=== PATIENT | female | born 1970 | race Caucasian/White ===

== ENCOUNTER 2017-10-18 12:46 | Emergency (ER) | payer BC ==
[~2017-10-18] VITALS: Ht 175.3 cm; Wt 85.0 kg
[~2017-10-18 12:46] MED LIST: MOTRIN800 MG PO
[2017-10-18] MEDS ORDERED: HYDROCO/APAP1 TA9 PO (13:17)
[2017-10-18] MEDS ORDERED: ACCUPRIL5 MG PO (13:18)
[2017-10-18 15:27] VITALS: BP 106/74
== END 2017-10-18 15:27 | disposition home or self-care (01) | DRG 556 ==
LOC: ED 12:46
DX: M79.662 Pain in left lower leg (principal); F17.210 Nicotine dependence, cigarettes, uncomplicated; M79.89 Other specified soft tissue disorders; Z98.890 Other specified postprocedural states

== ENCOUNTER 2018-03-08 14:47 | Emergency (ER) | payer OTHER, BC ==
[~2018-03-08] VITALS: Ht 175.3 cm; Wt 85.9 kg
[~2018-03-08 14:47] MED LIST changes: +ACCUPRIL5 MG PO; +HYDROCO/APAP1 TA9 PO
[2018-03-08] MEDS ORDERED: MOTRIN400 MG PO (17:21)
[2018-03-08 17:37] VITALS: BP 124/73
== END 2018-03-08 17:36 | disposition home or self-care (01) | DRG 552 ==
LOC: ED 14:47
DX: S16.1XXA Strain of muscle, fascia and tendon at neck level, initial encounter (principal); S46.911A Strain of unspecified muscle, fascia and tendon at shoulder and upper arm level, right arm, initial encounter; F17.210 Nicotine dependence, cigarettes, uncomplicated; W20.8XXA Other cause of strike by thrown, projected or falling object, initial encounter; Y93.89 Activity, other specified; Y92.89 Other specified places as the place of occurrence of the external cause; Y99.0 Civilian activity done for income or pay

== ENCOUNTER 2018-06-13 10:02 | Emergency (ER) | payer BC ==
[~2018-06-13] VITALS: Ht 175.3 cm; Wt 89.0 kg
[~2018-06-13 10:02] MED LIST changes: +CEPHALEXIN500 M1 PO; +DEBROX6.5 % AD; +DENIES CURRENT MEDS; +FLONASE NASAL50 MCG; +MOTRIN400 MG PO; +NAPROSYN500 MG PO; +ROBITUSSIN AC10 ML OR; +TRAMADOL HYDROC50 MG PO; +ZITHROMAX250 MG PO
[2018-06-13] MEDS ORDERED: ULTRAM50 M1 PO (12:35)
[2018-06-13] MEDS ORDERED: AMOXICILLIN500 MG PO (12:35)
[2018-06-13 12:40] VITALS: BP 120/66
== END 2018-06-13 12:40 | disposition home or self-care (01) | DRG 153 ==
LOC: ED 10:02
DX: J02.9 Acute pharyngitis, unspecified (principal); I88.9 Nonspecific lymphadenitis, unspecified; F17.210 Nicotine dependence, cigarettes, uncomplicated; M50.80 Other cervical disc disorders, unspecified cervical region

== ENCOUNTER 2018-07-22 14:06 | Emergency (ER) | payer OTHER, BC ==
[~2018-07-22] VITALS: Ht 175.3 cm; Wt 80.0 kg
[~2018-07-22 14:06] MED LIST changes: +AMOXICILLIN500 MG PO; +ULTRAM50 M1 PO
[2018-07-22] MEDS ORDERED: CYCLOBENZAPRINE5 MG PO (14:40)
[2018-07-22 15:30] VITALS: BP 125/70
== END 2018-07-22 15:30 | disposition home or self-care (01) | DRG 556 ==
LOC: ED 14:06
DX: M62.838 Other muscle spasm (principal); F17.210 Nicotine dependence, cigarettes, uncomplicated; X50.0XXA Overexertion from strenuous movement or load, initial encounter; Y93.89 Activity, other specified; Y92.89 Other specified places as the place of occurrence of the external cause; Y99.0 Civilian activity done for income or pay

== ENCOUNTER 2018-11-07 10:31 | Emergency (ER) | payer BC ==
[~2018-11-07] VITALS: Ht 175.3 cm; Wt 87.3 kg
[~2018-11-07 10:31] MED LIST changes: +CYCLOBENZAPRINE5 MG PO
[2018-11-07] MEDS ORDERED: PREDNISONE50 MG PO ×2 (10:50→10:56)
[2018-11-07] MEDS ORDERED: DOXYCYCL HYC100 M4 PO ×2 (10:50→10:56)
[2018-11-07] MEDS ORDERED: PROAIR HFA108 MCG/AC PO ×2 (10:50→10:56)
[2018-11-07 11:30] VITALS: BP 127/77
== END 2018-11-07 11:30 | disposition home or self-care (01) | DRG 203 ==
LOC: ED 10:31
DX: J40 Bronchitis, not specified as acute or chronic (principal); R05 Cough; F17.200 Nicotine dependence, unspecified, uncomplicated

== ENCOUNTER 2018-11-29 20:24 | Emergency (ER) | payer BC ==
[~2018-11-29] VITALS: Ht 175.3 cm; Wt 86.0 kg
[~2018-11-29 20:24] MED LIST changes: +DOXYCYCL HYC100 M4 PO; +PREDNISONE50 MG PO; +PROAIR HFA108 MCG/AC PO
[2018-11-29 22:00] VITALS: BP 115/68
== END 2018-11-29 22:03 | disposition home or self-care (01) | DRG 563 ==
LOC: ED 20:24
DX: S93.402A Sprain of unspecified ligament of left ankle, initial encounter (principal); S90.812A Abrasion, left foot, initial encounter; F17.200 Nicotine dependence, unspecified, uncomplicated; W20.8XXA Other cause of strike by thrown, projected or falling object, initial encounter; Y93.89 Activity, other specified; Y92.009 Unspecified place in unspecified non-institutional (private) residence as the place of occurrence of the external cause

== ENCOUNTER 2019-04-19 12:34 | Observation (INO) | payer BC ==
[~2019-04-19] VITALS: Ht 175.3 cm; Wt 84.1 kg
--- NOTE | 2019-04-19 12:36 | NUR ---
PT ARRIVED SKIN PWD VIA EMS STRETCHER IN NO ACUTE DISTRESS.VSS. STATES CP IS RESOLVED. STATES CP BEGAN AT WORK APPROX [id number] AND WENT INTO RT NECK AND ARM
[2019-04-19 12:59] LABS: GFR > 60 ML/MIN (>=60 (CALC)); GFR FOR AFR.AMER. > 60 ML/MIN (>=60 (CALC))
[2019-04-19 13:10] LABS: HEMATOCRIT 38.9 % (37.0-47.0); HEMOGLOBIN 12.6 g/dl (12.0-16.0); IMMATURE GRANULOCYTES 0.4 % (0.0-5.0); MEAN CELL VOLUME 92.2 fL CALC (80.0-100.0); MEAN CORPUSCULAR HGB 29.9 pG CALC (26.0-32.0); MEAN CORPUSCULAR HGB CONC 32.4 g/L CALC (32.0-36.0); NEUT# 4.2 thou/uL (2.00-7.15); RED BLOOD COUNT 4.22 mill/uL (4.20-5.60); RED CELL DISTRI WIDTH 12.9 % (11.5-15.5)
--- NOTE | 2019-04-19 13:36 | NUR ---
PT RESTING IN NO ACUTE DISTRESS. VSS. CONTINUES TO DENY CP OR SOB
[2019-04-19 13:47] LABS: ALBUMIN 4.3 g/dL (3.2-5.0); ALKALINE PHOSPHATASE 73 u/l (38-126); ANION GAP 12 (6-22 (CALC)); BILIRUBIN, TOTAL 0.4 mg/dL (0.0-1.4); BUN 12 mg/dL (7-17); BUN/CREATININE RATIO 17 (12-20 (CALC)); CARBON DIOXIDE 25 mmol/l (22-30); CHLORIDE 106 mmol/l (95-108); CREATININE 0.7 mg/dL (0.5-1.0); GFR > 60 ML/MIN (>=60 (CALC)); GFR FOR AFR.AMER. > 60 ML/MIN (>=60 (CALC)); LIPASE 67 u/l (23-300); POTASSIUM 4.3 mmol/l (3.5-5.1); SGOT/AST 24 u/l (14-36); SODIUM 139 mmol/l (137-146); TOTAL PROTEIN 7.1 g/dL (6.3-8.2)
--- NOTE | 2019-04-19 14:36 | NUR ---
PT IN NO DISTRESS, CONTINUES TO DENY SOB OR CP SINCE ADMIT TO ED. SKIN PWD, NO DISTRESS. VSS. SPOUSE AT BEDSIDE.
--- NOTE | 2019-04-19 14:45 | NUR ---
PT AWARE OF PENDING ADMIT AND AGREEABLE
--- NOTE | 2019-04-19 15:14 | NUR ---
ADMINISTERED PO PROTONIX AND SQ LOVENOX ORDERED. PT TOLERATED WELL. REMAINS PAIN FREE. AT BEDSIDE.
--- NOTE | 2019-04-19 15:55 | NUR ---
CALLED REPORT TO IAIN POSADA RN
--- NOTE | 2019-04-19 16:00 | NUR ---
TRANSPORTED TO IN VIA ON TELEMETRY IN STABLE CONDITION
[2019-04-19 16:10] VITALS: BP 115/77
--- NOTE | 2019-04-19 16:16 | NUR ---
PT HAD COME FROM ER VIA WHEELCHAIR BY DONNA. PT IS SITTING IN THE SIDE OF THE BED. ASSESSMENT DONE. PT IS A&O X3. PT DENIES CHEST PAIN. RESPS EVEN AND UNLABORED. TELE IN PLACE. 20 LAC THAT APPEAR HEALTHY. SAFETY PRECAUTIONS REINFORCED AND CALL LIGHT IN REACH.
[2019-04-19 19:05] VITALS: BP 110/65
--- NOTE | 2019-04-19 20:00 | NUR ---
PATIENT AWAKE ALERT AND ORIENTEDX3 RESTING IN BED. PATIENT WITH NO COMPLAINTS AT THIS TIME. DENIES ANY CHEST PAIN OR SOB. TELE MONITOR IN PLACE. PATIENT EMS IV SITE TO LEFT ACSALINE LOCK. APPEARS HEALTHY AT THIS TIME. ON CONTACT PRECAUTIONS FOR H/O MRSA. SERIAL TROPS NEG SO FAR. CALL LIGHT IN REACH. WILL CONT TO MONITOR.
[2019-04-19 23:45] VITALS: BP 102/65
--- NOTE | 2019-04-20 | NUR ---
PATIENT RESTING IN BED-TROP DRAWN ORDERED. TELE MONITOR IN PLACE, NO COMPLAINTS AT THIS TIME. CALL LIGHT IN REACH, WILL CONT TO MONITOR.
[2019-04-20 04:24] VITALS: BP 100/51
--- NOTE | 2019-04-20 04:26 | NUR ---
PATIENT APPEARS RESTING WITH EYES CLOSED. RESP ARE EVEN AND UNLABORED. TELE MONITOR IN PLACE. CALL LIGHT IN REACH. WILL CONT TO MONITOR.
[2019-04-20 05:49] LABS: HEMATOCRIT 38.4 % (37.0-47.0); HEMOGLOBIN 12.5 g/dl (12.0-16.0); IMMATURE GRANULOCYTES 0.3 % (0.0-5.0); MEAN CELL VOLUME 92.8 fL CALC (80.0-100.0); MEAN CORPUSCULAR HGB 30.2 pG CALC (26.0-32.0); MEAN CORPUSCULAR HGB CONC 32.6 g/L CALC (32.0-36.0); NEUT# 2.56 thou/uL (2.00-7.15); RED BLOOD COUNT 4.14 mill/uL (4.20-5.60); RED CELL DISTRI WIDTH 12.8 % (11.5-15.5)
[2019-04-20 06:02] LABS: ALBUMIN 3.8 g/dL (3.2-5.0); ALKALINE PHOSPHATASE 69 u/l (38-126); AMYLASE 35 u/l (30-110); ANION GAP 7 (6-22 (CALC)); BILIRUBIN, TOTAL 0.4 mg/dL (0.0-1.4); BUN 12 mg/dL (7-17); BUN/CREATININE RATIO 15 (12-20 (CALC)); CHLORIDE 105 mmol/l (95-108); CREATININE 0.8 mg/dL (0.5-1.0); GFR > 60 ML/MIN (>=60 (CALC)); GFR FOR AFR.AMER. > 60 ML/MIN (>=60 (CALC)); LIPASE 62 u/l (23-300); MAGNESIUM 2.1 mg/dL (1.6-2.3); SGOT/AST 20 u/l (14-36); SODIUM 139 mmol/l (137-146); TOTAL PROTEIN 6.4 g/dL (6.3-8.2)
[2019-04-20 06:18] LABS: CARBON DIOXIDE 31 mmol/l (22-30)
[2019-04-20 07:36] VITALS: BP 114/58
--- NOTE | 2019-04-20 07:49 | NUR ---
ASSESSMENT DONE. PT IS A&O X3. PT DENIES PAIN AT THIS TIME. RESPS EVEN AND UNLABORED. TELE IN PLACE. PT DENIES ANY NEEDS AT THIS TIME. CALL LIGHT IN REACH.
--- NOTE | 2019-04-20 07:49 | NUR ---
PT ASSESSMENT COMPLETE. PT RESTING IN BED. PT STATED NO PAIN AT THIS TIME. RESP UNLABORED. PT IS A&O X3. TELE IN PLACE. MEDICATION PASSED. PT STATES NO NEEDS AT THIS TIME. CALL LIGHT WITHIN REACH.
--- NOTE | 2019-04-20 11:05 | NUR ---
DR. BROUSSARD AT BEDSIDE TO ASSESS PT AND DISCUSS POC. PT IS TO BE D/C TODAY. PT REMOVED HER TELE. IN ROOM. CALL LIGHT IN REACH.
[2019-04-20 11:18] VITALS: BP 106/61
--- NOTE | 2019-04-20 12:12 | NUR ---
Discharge instructions given. Patient verbalizes understanding of same. Discharged in stable condition via Ambulatory to Home with spouse. All belongings sent with pt.
== END 2019-04-20 12:10 | disposition home or self-care (01) | DRG 313 ==
LOC: ED 12:34 → ED-I 14:35 → ED 14:49 → MS2 14:50
PROVIDERS: Family Medicine; ADMIT Internal Medicine Nephrology; ATTEND Internal Medicine Nephrology
DX: R07.89 Other chest pain (principal); M50.10 Cervical disc disorder with radiculopathy, unspecified cervical region; F17.200 Nicotine dependence, unspecified, uncomplicated
CPT/HCPCS: G0378; J1650; Q9967

== ENCOUNTER 2021-06-03 14:35 | Emergency (ER) | payer SELFPAY ==
[~2021-06-03] VITALS: Ht 175.3 cm; Wt 93.6 kg
[2021-06-03 16:34] VITALS: BP 121/66
== END 2021-06-03 16:39 | disposition home or self-care (01) | DRG 556 ==
LOC: ED 14:35
DX: M25.562 Pain in left knee (principal); F17.200 Nicotine dependence, unspecified, uncomplicated; W01.0XXA Fall on same level from slipping, tripping and stumbling without subsequent striking against object, initial encounter; Y92.008 Other place in unspecified non-institutional (private) residence as the place of occurrence of the external cause

== ENCOUNTER 2021-07-16 14:17 | Emergency (ER) | payer OTHER ==
[~2021-07-16] VITALS: Ht 175.3 cm; Wt 77.0 kg
[2021-07-16] MEDS ORDERED: ZOFRAN4 MG/TAB PO (16:23)
[2021-07-16 16:28] VITALS: BP 122/75
== END 2021-07-16 16:28 | disposition home or self-care (01) | DRG 561 ==
LOC: ED 14:17
DX: S42.301D Unspecified fracture of shaft of humerus, right arm, subsequent encounter for fracture with routine healing (principal); X58.XXXD Exposure to other specified factors, subsequent encounter; F17.200 Nicotine dependence, unspecified, uncomplicated

== ENCOUNTER 2022-03-14 18:21 | Emergency (ER) | payer OTHER ==
[~2022-03-14] VITALS: Ht 175.3 cm; Wt 108.0 kg
[~2022-03-14 18:21] MED LIST changes: +ZOFRAN4 MG/TAB PO
[2022-03-14 18:26] VITALS: BP 147/84
[2022-03-14 18:33] VITALS: BP 136/77
[2022-03-14 18:57] VITALS: BP 135/67
[2022-03-14 19:00] VITALS: BP 127/76
[2022-03-14 19:30] VITALS: BP 130/80
[2022-03-14] MEDS ORDERED: NAPROXEN500 MG PO (20:40)
[2022-03-14 20:44] VITALS: BP 130/80
== END 2022-03-14 20:44 | disposition home or self-care (01) | DRG 605 ==
LOC: ED 18:21
DX: S90.31XA Contusion of right foot, initial encounter (principal); R07.81 Pleurodynia; M25.562 Pain in left knee; F17.200 Nicotine dependence, unspecified, uncomplicated; W10.9XXA Fall (on) (from) unspecified stairs and steps, initial encounter

== ENCOUNTER 2023-08-04 20:14 | Emergency (ER) | payer SELFPAY ==
[~2023-08-04] VITALS: Ht 175.3 cm; Wt 97.0 kg
[~2023-08-04 20:14] MED LIST changes: +NAPROXEN500 MG PO
[2023-08-04 20:28] VITALS: BP 123/76
[2023-08-04] MEDS ORDERED: VOLTAREN75 MG PO (22:00)
[2023-08-04 22:17] VITALS: BP 123/76
== END 2023-08-04 22:17 | disposition home or self-care (01) | DRG 558 ==
LOC: ED 20:14
DX: M75.32 Calcific tendinitis of left shoulder (principal); F17.210 Nicotine dependence, cigarettes, uncomplicated

== ENCOUNTER 2024-06-03 13:44 | Emergency (ER) | payer OTHER ==
[~2024-06-03] VITALS: Ht 175.3 cm; Wt 87.0 kg
[2024-06-03] VITALS (18 sets, daily range): BP systolic 86–116; BP diastolic 49–71
[~2024-06-03 13:44] MED LIST changes: +VOLTAREN75 MG PO
[2024-06-03] MEDS ORDERED: ASPIRIN 81 MG/TAB PO ONE (14:05)
[2024-06-03] MEDS ORDERED: ORPHENADRINE CITRATE 30 MG/ML AMP IM ONE (14:10)
[2024-06-03] MEDS ORDERED: traMADol HCL 50 MG/TAB PO ONE (14:10)
[2024-06-03 14:25] LABS: BASO% 0.2 % (0-3); EOS% 2.4 % (0-8); HEMATOCRIT 40.3 % (37.0-47.0); HEMOGLOBIN 13.3 g/dl (12.0-16.0); IMMATURE GRANULOCYTES 0.1 % (0.0-5.0); LYMPH% 26.6 % (15-41); MEAN CELL VOLUME 93.3 fL CALC (80.0-100.0); MEAN CORPUSCULAR HGB 30.8 pG CALC (26.0-32.0); MONO% 5.8 % (2-13); NEUT# 5.84 thou/uL (2.00-7.15); NEUT% 64.9 % (42-76); RED BLOOD COUNT 4.32 mill/uL (4.20-5.60); RED CELL DISTRI WIDTH 12.9 % (11.5-15.5)
[2024-06-03 14:31] LABS: D-DIMER 0.35 mg/L (0.19-0.60)
[2024-06-03 14:32] LABS: ALBUMIN 4.3 g/dL (3.2-5.0); ALKALINE PHOSPHATASE 84 u/l (38-126); BILIRUBIN, TOTAL 0.5 mg/dL (0.02-1.3); BUN 11 mg/dL (7-17); BUN/CREATININE RATIO 13 (12-20 (CALC)); CHLORIDE 109 mmol/l (95-108); CREATININE 0.8 mg/dL (0.5-1.0); ESTIMATED GFR 89 ML/MIN (>=90 (CALC)); LIPASE 52 u/l (23-300); SGOT/AST 27 u/l (14-36); SODIUM 137 mmol/l (137-146)
[2024-06-03 14:37] LABS: ACT PARTIAL THROMBO TIME 27.1 SECONDS (20.0-32.5); INTERNATIONAL NORMALIZED RATIO 1.1 RATIO (0.7-1.3)
[2024-06-03 14:38] LABS: ANION GAP 11 (6-22 (CALC)); CARBON DIOXIDE 21 mmol/l (22-30); PROTHROMBIN TIME 10.3 SECONDS (9.0-12.5); TOTAL PROTEIN 7.7 g/dL (6.3-8.2)
[2024-06-03 15:03] LABS: TSH, 3RD GENERATION 0.96 uIU/mL (0.47 - 4.68)
[2024-06-03] MEDS ORDERED: ORPHENADRINE100 MG PO (16:37)
[2024-06-03] MEDS ORDERED: MOTRIN800 MG PO (16:37)
== END 2024-06-03 17:09 | disposition home or self-care (01) | DRG 313 ==
LOC: ED 13:44
PROVIDERS: Emergency Medicine
DX: R07.89 Other chest pain (principal); F17.200 Nicotine dependence, unspecified, uncomplicated

== ENCOUNTER 2024-06-21 12:09 | Emergency (ER) | payer OTHER ==
[2024-06-21] VITALS (7 sets, daily range): BP systolic 117–150; BP diastolic 75–81
[~2024-06-21] VITALS: Ht 175.3 cm; Wt 88.0 kg
[~2024-06-21 12:09] MED LIST changes: +ORPHENADRINE100 MG PO
[2024-06-21] MEDS ORDERED: MEDDOSEPAK PO (13:40)
[2024-06-21] MEDS ORDERED: ZPAK PO (13:40)
== END 2024-06-21 13:54 | disposition home or self-care (01) | DRG 153 ==
LOC: ED 12:09
DX: J06.9 Acute upper respiratory infection, unspecified (principal); F17.200 Nicotine dependence, unspecified, uncomplicated; Z20.822 Contact with and (suspected) exposure to COVID-19

== ENCOUNTER 2024-06-30 15:33 | Emergency (ER) | payer OTHER ==
[~2024-06-30] VITALS: Ht 175.3 cm; Wt 88.9 kg
[2024-06-30] VITALS (8 sets, daily range): BP systolic 102–155; BP diastolic 59–87
[~2024-06-30 15:33] MED LIST changes: +MEDDOSEPAK PO; +ZPAK PO
[2024-06-30] MEDS ORDERED: predniSONE 20 MG/TAB PO ONE (15:40)
[2024-06-30] MEDS ORDERED: ALBUTEROL SULFATE 2.5 MG VIAL IN ONE ×2 (15:40→16:20)
[2024-06-30] MEDS ORDERED: PREDNISONE20 MG PO (17:07)
[2024-06-30] MEDS ORDERED: ALBUTEROL SUL0.083 % IN (17:07)
== END 2024-06-30 17:24 | disposition home or self-care (01) | DRG 203 ==
LOC: ED 15:33
DX: J45.909 Unspecified asthma, uncomplicated (principal); F17.200 Nicotine dependence, unspecified, uncomplicated

== ENCOUNTER 2024-12-24 23:07 | Emergency (ER) | payer OTHER ==
[~2024-12-24] VITALS: Ht 175.3 cm; Wt 79.0 kg
[~2024-12-24 23:07] MED LIST changes: +ALBUTEROL SUL0.083 % IN; +PREDNISONE20 MG PO
[2024-12-24 23:11] VITALS: BP 123/67
[2024-12-24 23:30] VITALS: BP 116/58
[2024-12-24] MEDS ORDERED: MORPHINE SULFATE 4 MG/ML VIAL IV ONE (23:30)
[2024-12-24] MEDS ORDERED: ONDANSETRON HCl 4 MG/2 ML SDV IV ONE (23:30)
[2024-12-24 23:53] LABS: URINE BILIRUBIN - DIPSTICK Negative (NEGATIVE); URINE BLOOD DIPSTICK Trace-intact (NEGATIVE); URINE GLUCOSE - DIPSTICK Negative (NEGATIVE); URINE KETONE Negative (NEGATIVE); URINE LEUK ESTERASE Negative (NEGATIVE); URINE NITRITE - DIPSTICK Negative (Negative); URINE PROTEIN - DIPSTICK 30 mg/dL (NEG-TRACE)
[2024-12-24 23:54] LABS: BASO% 0.2 % (0-3); EOS% 2.9 % (0-8); HEMATOCRIT 37.7 % (37.0-47.0); HEMOGLOBIN 12.1 g/dl (12.0-16.0); IMMATURE GRANULOCYTES 0.2 % (0.0-5.0); LYMPH% 31.9 % (15-41); MEAN CELL VOLUME 94.3 fL CALC (80.0-100.0); MEAN CORPUSCULAR HGB 30.3 pG CALC (26.0-32.0); MEAN CORPUSCULAR HGB CONC 32.1 g/dL CAL (32.0-36.0); MONO% 6.2 % (2-13); NEUT# 7.14 thou/uL (2.00-7.15); NEUT% 58.6 % (42-76)
[2024-12-24 23:54] LABS: URINE COLOR Yellow
[2024-12-25 00:04] LABS: BILIRUBIN, TOTAL 0.5 mg/dL (0.02-1.3); CREATININE 0.8 mg/dL (0.5-1.0); POTASSIUM 3.9 mmol/l (3.5-5.1); TOTAL PROTEIN 6.8 g/dL (6.3-8.2)
[2024-12-25 00:09] LABS: CPK 85 u/l (30-135)
[2024-12-25 00:14] LABS: URINE WBC 0-2 WBC/hpf (0-5)
[2024-12-25 00:15] LABS: URINE MUCUS MODERATE hpf (NONE-FEW); URINE SQUAMOUS EPITHELIAL CELL MODERATE EPI/hpf (0-FEW); URINE TRANSITIONAL EPI. CELLS FEW hpf
[2024-12-25 01:30] VITALS: BP 104/61
[2024-12-25 02:00] VITALS: BP 116/72
[2024-12-25 02:30] VITALS: BP 111/72
[2024-12-25] MEDS ORDERED: ZOFRAN4 MG/TAB PO (02:46)
[2024-12-25 03:00] VITALS: BP 114/68
[2024-12-25 03:04] VITALS: BP 114/68
== END 2024-12-25 03:04 | disposition home or self-care (01) | DRG 392 ==
LOC: ED 23:07
PROVIDERS: Family Medicine
DX: K29.70 Gastritis, unspecified, without bleeding (principal); F17.210 Nicotine dependence, cigarettes, uncomplicated
CPT/HCPCS: J2405; Q9967

== ENCOUNTER 2024-12-31 10:58 | Emergency (ER) | payer OTHER ==
[~2024-12-31] VITALS: Ht 175.3 cm; Wt 79.8 kg
[2024-12-31 11:30] LABS: BASO% 0.4 % (0-3); EOS% 6.6 % (0-8); HEMATOCRIT 39.7 % (37.0-47.0); HEMOGLOBIN 12.9 g/dl (12.0-16.0); IMMATURE GRANULOCYTES 0.1 % (0.0-5.0); LYMPH% 35.5 % (15-41); MEAN CELL VOLUME 94.3 fL CALC (80.0-100.0); MEAN CORPUSCULAR HGB 30.6 pG CALC (26.0-32.0); MEAN CORPUSCULAR HGB CONC 32.5 g/dL CAL (32.0-36.0); MONO% 7.1 % (2-13); NEUT# 3.41 thou/uL (2.00-7.15); NEUT% 50.3 % (42-76); RED BLOOD COUNT 4.21 mill/uL (4.20-5.60); RED CELL DISTRI WIDTH 13.2 % (11.5-15.5)
[2024-12-31 11:33] LABS: URINE BILIRUBIN - DIPSTICK Negative (NEGATIVE); URINE BLOOD DIPSTICK Negative (NEGATIVE); URINE COLOR Yellow; URINE GLUCOSE - DIPSTICK Negative (NEGATIVE); URINE KETONE Negative (NEGATIVE); URINE LEUK ESTERASE Negative (NEGATIVE); URINE NITRITE - DIPSTICK Negative (Negative); URINE PROTEIN - DIPSTICK Negative (NEG-TRACE); URINE SPECIFIC GRAVITY 1.015; URINE UROBILINOGEN - DIPSTICK 0.2 E.U./dL (0.2)
[2024-12-31 11:53] VITALS: BP 112/64
[2024-12-31] MEDS ORDERED: ALUM & MAG HYDROX-SIMETHICONE 30 ML PO ONE (11:55)
[2024-12-31] MEDS ORDERED: Pantoprazole Sodium 40 MG VIAL (Protonix) IV ONE (11:55)
[2024-12-31] MEDS ORDERED: LIDOCAINE VISCOUS 2% 15 ML UDC PO ONE (11:55)
[2024-12-31 11:59] LABS: ALBUMIN 4.3 g/dL (3.2-5.0); BILIRUBIN, TOTAL 0.6 mg/dL (0.02-1.3); CREATININE 0.8 mg/dL (0.5-1.0); TOTAL PROTEIN 7.2 g/dL (6.3-8.2)
[2024-12-31 12:00] VITALS: BP 97/57
[2024-12-31 12:15] VITALS: BP 97/56
[2024-12-31 12:30] VITALS: BP 103/67
[2024-12-31 12:45] VITALS: BP 114/58
[2024-12-31] MEDS ORDERED: PROTONIX40 MG PO (12:45)
[2024-12-31 13:00] VITALS: BP 96/62
== END 2024-12-31 13:11 | disposition home or self-care (01) | DRG 392 ==
LOC: ED 10:58
PROVIDERS: Family Medicine
DX: K29.70 Gastritis, unspecified, without bleeding (principal); F17.200 Nicotine dependence, unspecified, uncomplicated
CPT/HCPCS: J2470